=== PATIENT | male | born 1965 | race Caucasian/White ===

== ENCOUNTER 2017-07-06 19:06 | Emergency (ER) | payer OTHER ==
[2017-07-06 20:10] LABS: ABSOLUTE BASOPHIL COUNT 0 /CUMM (0.0-0.2); ABSOLUTE EOSINOPHIL COUNT 0 /CUMM (0.0-0.7); ABSOLUTE GRANULOCYTE CT 11.9 /CUMM (1.4-6.5); ABSOLUTE LYMPH COUNT 0.7 /CUMM (1.2-3.4); ABSOLUTE MONOCYTE COUNT 0.8 /CUMM (0.10-0.60); BASOPHIL % 0.1 % (0.0-2.0); EOSINOPHIL % 0.2 % (0-5); GRANULOCYTE % 88.9 % (42.2-75.2); HEMATOCRIT 39.4 % (42-52); MEAN CORPUSCULAR HGB 28.6 PG (27.0-31.0); MEAN CORPUSCULAR HGB CONC 33.7 G/DL (33.0-37.0); MEAN CORPUSCULAR VOLUME 84.9 FL (80.0-94.0); MEAN PLATELET VOLUME 8.3 FL (7.4-10.4); PLATELET COUNT 208 /CUMM (130-400); RBC DISTRIBUTION WIDTH 13.6 % (11.5-14.5); RED BLOOD CELL CT 4.65 /CUMM (4.70-6.10); WHITE BLOOD CELL COUNT 13.4 /CUMM (4.8-10.8)
--- NOTE | 2017-07-06 20:37 | ED GI/GU/ABDOMINAL COMPLAINT ---
History of Present Illness General Chief Complaint: Abdominal Pain/Flank Pain Stated Complaint: SENT BY URGENT CARE FOR ABDOMINAL PAIN Source: patient Exam Limitations: no limitations Vital Signs & Intake/Output Vital Signs & Intake/Output Vital Signs Date Time Temp Pulse Resp B/P B/P Pulse O2 O2 Flow FiO2 Mean Ox Delivery Rate 07/07 2147 98.5 87 114/62 96 Room Air 07/07 2131 99.1 79 20 106/58 97 Room Air 07/06 2038 101.7 07/06 1929 101.7 104 20 119/76 99 Room Air Allergies Coded Allergies: ofloxacin (From OCUFLOX) (LIGHT SENSITIVITY 07/06/17) Reconcile Medications Amoxicillin/Potassium Clav (Augmentin 875-125 Tablet) 875 MG-125 MG TABLET 1 TAB PO BID divertiuclitis Fexofenadine HCl (Krystyna Allergy) 180 MG TABLET 1 TAB PO DAILY ALLERGIES ( Reported) Folic Acid/Multivit-Min/Lutein (Multi-Vitamin Gummies) 200 MCG-137.5 MCG TAB.CHEW 2 TAB PO DAILY SUPPLEMENT (Reported) Triage Note: PER PT ABD PAIN AFTER WAKING THIS AM PAIN TO URETHRA AND LOW ABD PAIN THEN STARTED WITH FEVER 102, THIS AFTERNOON, LAST MOTRIN 1530, TEMP IN TRIAGE 101.7 DENIES N/V/D NO URINE CO NO BACK PAIN Triage Nurses Notes Reviewed? yes Onset: Abrupt Duration: day(s): (1), changing over time, continues in ED Timing: single episode today Quality/Severity: cramping Severity Numbers: 7 Location: left lower quadrant, right lower quadrant Radiation: no radiation Activities at Onset: none Prior Abdominal Problems: none Past Sexual History: Unobtainable at this time Use of Protection: No No Modifying Factors: none Modifying Factors: Worsens With: movement, palpation. Associated Symptoms: abdominal pain, fever/chills HPI: 51-year-old male with no past medical history presents for evaluation of abdominal pain and fever. Patient states symptoms started earlier today with bilateral lower abdominal pain and fever. He states that initially the pain started in the superpubic and left lower quadrant. He also reported some intermittent pain in his urethra. This was very brief and resolved no testicular pain or swelling. No urinary symptoms. No penile discharge or fever. No back pain. No abdominal surgeries. No other associated symptoms. Past History Travel History Traveled to [place] past 21 day No Medical History Any Pertinent Medical History? see below for history Neurological: NONE EENT: NONE Cardiovascular: NONE Respiratory: NONE Gastrointestinal: NONE Hepatic: NONE Renal: NONE Musculoskeletal: NONE Psychiatric: NONE Endocrine: NONE Blood Disorders: NONE Surgical History Surgical History: non-contributory Psychosocial History What is your primary language Kinyarwanda Tobacco Use: Never used Family History Hx Contributory? No Review of Systems Review of Systems Constitutional: Reports: chills, diaphoresis, fever. EENTM: Reports: no symptoms. Respiratory: Reports: no symptoms. Cardiovascular: Reports: no symptoms. GI: Reports: see HPI, abdominal pain. Genitourinary: Reports: no symptoms. Musculoskeletal: Reports: no symptoms. Skin: Reports: no symptoms. Neurological/Psychological: Reports: no symptoms. Hematologic/Endocrine: Reports: no symptoms. Immunologic/Allergic: Reports: no symptoms. All Other Systems: Reviewed and Negative Physical Exam Physical Exam General Appearance: well developed/nourished, no apparent distress, alert, awake Head: atraumatic, normal appearance Eyes: Bilateral: normal appearance, PERRL, EOMI. Ears, Nose, Throat, Mouth: hearing grossly normal, moist mucous membrane Neck: normal inspection, supple, full range of motion Respiratory: normal breath sounds, chest non-tender, no respiratory distress, lungs clear Cardiovascular: regular rate/rhythm, normal peripheral pulses Peripheral Pulses: 2+ radial (R), 2+ radial (L) Gastrointestinal: normal bowel sounds, soft, non-tender, no organomegaly Back: normal inspection, normal range of motion, no vertebral tenderness Extremities: normal range of motion Neurologic/Psych: no motor/sensory deficits, awake, alert, oriented x 3, normal gait Skin: intact, normal color, warm/dry Core Measures ACS in differential dx? No Sepsis Present: No Sepsis Focused Exam Completed? No Progress Differential Diagnosis: AAA, AMI, appendicitis, biliary colic, bowel obstruction , cholecystitis, diverticulitis, gastritis, pancreatitis, prostatitis, peptic ulcer, PUD/GERD, pyelonephritis, SBO, STD, ureterolithiasis, urinary retention, urethritis, UTI/pyelo Plan of Care: Orders Procedure Date/time Status Add-on Test (ER Only) 07/06 2002 Active BLOOD CULTURE 07/06 2002 Active EKG 07/06 2002 Active LACTIC ACID 07/06 1952 Complete URINALYSIS 07/06 1912 Complete TROPONIN LEVEL 07/06 1912 Complete LIPASE 07/06 1912 Complete COMPREHENSIVE METABOLIC PANEL 07/06 1912 Complete CBC WITHOUT DIFFERENTIAL 07/06 1912 Complete Laboratory Tests 07/06/172000: Urine Color YEL, Urine Clarity CLEAR, Urine pH 6.0, Ur Specific [place] 1.025, Urine Protein NEG, Urine Ketones NEG, Urine Nitrite NEG, Urine Bilirubin NEG, Urine Urobilinogen 0.2, Ur Leukocyte Esterase NEG, Ur Microscopic EXAM NOT REQUIRED, Urine Hemoglobin NEG, Urine Glucose NEG 07/06/171952: Anion Gap 14, Estimated GFR > 60, BUN/Creatinine Ratio 17.5, Glucose 106 H, Lactic Acid 1.6, Calcium 9.7, Total Bilirubin 0.9, AST 42, ALT 67, Alkaline Phosphatase 68, Troponin I < 0.01, Total Protein 7.4, Albumin 4.9, Globulin 2.5, Albumin/Globulin Ratio 2.0, Lipase 55, CBC w Diff MAN DIFF ORDERED, RBC 4.65 L, MCV 84.9, MCH 28.6, MCHC 33.7, RDW 13.6, MPV 8.3, Gran % 88.9 H, Lymphocytes % 4.9 L, Monocytes % 5.9, Eosinophils % 0.2, Basophils % 0.1, Absolute Granulocytes 11.9 H, Segmented Neutrophils 75, Band Neutrophils 6 H, Absolute Lymphocytes 0.7 L, Lymphocytes 10 L, Monocytes 9, Absolute Monocytes 0.8 H, Absolute Eosinophils 0, Absolute Basophils 0, Platelet Estimate ADEQUATE, Normochromic RBCs VERIFIED Microbiology 07/06 2129 BLOOD: Blood Culture - RECD 07/06 2006 BLOOD: Blood Culture - RECD Patient seen and evaluated. He is here with lower abdominal pain. The pain is located in the bilateral lower quadrants. He is also febrile to 101. IV fluids IV Tylenol ordered. Labs CT scan ordered. Patient is feeling better after Tylenol. His fever broke. He is no longer tachycardic. Blood work shows a white blood cell count of 13.[address] scan is still pending. CT scan shows diverticulitis. No abscess no perforation. Patient is medicated Unasyn here and will be discharged on Augmentin. Follow-up with GI discussed return precautions patient agrees Diagnostic Imaging: Viewed by Me: Radiology Read. Discussed w/RAD: Radiology Read. CXR Impression: PATIENT: KATIE MORALES PRESENT AGE: 51 PATIENT ACCOUNT NO: [id number] : 66 LOCATION: [facility] ORDERING PHYSICIAN: Chun RAMACHANDRAN SERVICE DATE: 07/06/17 EXAM TYPE: RAD - XRY-PORTABLE CHEST XRAY EXAMINATION: XR PORTABLE CHEST CLINICAL INFORMATION: Cough and fever COMPARISON: None TECHNIQUE: Portable frontal view of the chest was obtained. 9: 55 PM FINDINGS: No significant abnormality is noted involving the heart, lungs, mediastinum, bony thorax or soft tissues. IMPRESSION: Unremarkable examination. DICTATED BY: Zeferino Bowser MD DATE/TIME DICTATED:07/06/172211 ACADEMIC RECORDS SPECIALIST :KETAN DATE/TIME TRANSCRIBED:07/06/172211 CONFIDENTIAL, DO NOT COPY WITHOUT APPROPRIATE AUTHORIZATION. <Electronically signed in Other Vendor System> SIGNED BY: Zeferino Bowser MD 07/06/172223 Initial ED EKG: normal sinus rhythm, LVH, LEFT ATRIAL ABN Departure Departure Disposition: STILL A PATIENT Condition: Stable Clinical Impression Primary Impression: Abdominal pain Qualifiers: Abdominal location: left lower quadrant Qualified Code: R10.32 - Left lower quadrant pain Referrals: Alisa HICKEY,Scotty Oconnor Patient Has No Primary Care Dr (PCP/Family) Additional Instructions: Taking about excess directed for the full course. Tylenol or ibuprofen for pain. Make a follow-up with provided GI doctor as soon as possible. Monitor symptoms closely return with any concerns. Departure Forms: Customer Survey General Discharge Information Prescriptions: Current Visit Scripts Amoxicillin/Potassium Clav (Augmentin 875-125 Tablet) 1 TAB PO BID #28 TAB
[2017-07-06] MEDS ORDERED: ALLEGRA ALLERG180 M1 PO (21:47)
[2017-07-06] MEDS ORDERED: MULTI-VITAMIN1 EAC1 PO (21:47)
--- NOTE | 2017-07-06 22:24 | RADIOLOGY REPORT ---
EXAMINATION: XR PORTABLE CHEST CLINICAL INFORMATION: Cough and fever COMPARISON: None TECHNIQUE: Portable frontal view of the chest was obtained. 9:55 PM FINDINGS: No significant abnormality is noted involving the heart, lungs, mediastinum, bony thorax or soft tissues. IMPRESSION: Unremarkable examination.
--- NOTE | 2017-07-06 23:48 | CT SCAN REPORT ---
EXAMINATION: CT ABDOMEN AND PELVIS WITH CONTRAST CLINICAL INFORMATION: Right lower quadrant pain. Left lower quadrant pain. Fever. COMPARISON: None TECHNIQUE: Multidetector volumetric imaging was performed of the abdomen and pelvis following IV administration of 95 mL of Optiray 320 intravenous contrast. Sagittal and coronal reformatted images were obtained on the technologist's workstation. DLP: 388.33 mGy-cm FINDINGS: LUNG BASES: The visualized lung bases are unremarkable. LIVER, GALLBLADDER, AND BILIARY TREE: The liver is normal in size, shape, and attenuation. No focal hepatic lesion or biliary ductal dilatation is present. The gallbladder is unremarkable with no evidence of radiopaque gallstones, gallbladder wall thickening, or obvious pericholecystic inflammatory changes. PANCREAS: Unremarkable. SPLEEN: Unremarkable. ADRENAL GLANDS: Unremarkable. KIDNEYS AND URETERS: The kidneys are normal in size, shape, and attenuation. No hydronephrosis, hydroureter, or calculi seen. No perinephric stranding. BLADDER: Unremarkable. GASTROINTESTINAL TRACT: There is diverticulosis of the left colon and sigmoid. There is focal mild bowel wall thickening and pericolonic edema of the proximal sigmoid consistent with a mild diverticulitis. There is no perforation or abscess. There is no bowel obstruction. Moderate amount of stool throughout the colon. The appendix is normal. The small bowel loops are normal. ABDOMINAL WALL: No significant hernia is appreciated. LYMPH NODES: Normal. VASCULAR: Unremarkable. PELVIC VISCERA: Unremarkable. OSSEOUS STRUCTURES: Degenerative spondylosis spine with multilevel endplate spurring of the vertebrae. IMPRESSION: Diverticulitis of the sigmoid colon.
[2017-07-06] MEDS ORDERED: AUGMENTIN 875-1 EACH PO (23:58)
[2017-07-07 00:28] VITALS: BP 110/67
== END 2017-07-07 00:34 ==
LOC: ERH 19:06
PROVIDERS: Physician Assistant Medical
DX: R10.32 Left lower quadrant pain (principal); R10.31 Right lower quadrant pain
CPT/HCPCS: 71045; 74177; 81003; 87040; 93005; 93010; 96374; 96375; J0131

== ENCOUNTER 2017-07-24 09:11 | Inpatient (IN) | payer OTHER ==
[~2017-07-24] VITALS: Ht 170 cm; Wt 78.0 kg
[~2017-07-24 09:11] MED LIST: ALLEGRA ALLERG180 M1 PO; AUGMENTIN 875-1 EACH PO; MULTI-VITAMIN1 EAC1 PO
[2017-07-24 11:36] LABS: ABSOLUTE BASOPHIL COUNT 0 /CUMM (0.0-0.2); ABSOLUTE EOSINOPHIL COUNT 0 /CUMM (0.0-0.7); ABSOLUTE GRANULOCYTE CT 11.6 /CUMM (1.4-6.5); ABSOLUTE LYMPH COUNT 1.5 /CUMM (1.2-3.4); ABSOLUTE MONOCYTE COUNT 1.5 /CUMM (0.10-0.60); BASOPHIL % 0.2 % (0.0-2.0); EOSINOPHIL % 0.3 % (0-5); GRANULOCYTE % 79.4 % (42.2-75.2); HEMATOCRIT 38.2 % (42-52); MEAN CORPUSCULAR HGB 28.8 PG (27.0-31.0); MEAN CORPUSCULAR HGB CONC 34.4 G/DL (33.0-37.0); MEAN CORPUSCULAR VOLUME 83.7 FL (80.0-94.0); PLATELET COUNT 439 /CUMM (130-400); RED BLOOD CELL CT 4.56 /CUMM (4.70-6.10); WHITE BLOOD CELL COUNT 14.6 /CUMM (4.8-10.8)
--- NOTE | 2017-07-24 11:50 | ED GI/GU/ABDOMINAL COMPLAINT ---
History of Present Illness General Chief Complaint: General Adult Stated Complaint: "DIVERTICULITIS NOT GETTING ANY BETTER" Source: patient Exam Limitations: no limitations Vital Signs & Intake/Output Vital Signs & Intake/Output Vital Signs Date Time Temp Pulse Resp B/P B/P Pulse O2 O2 Flow FiO2 Mean Ox Delivery Rate 07/25 0629 98.1 79 18 108/68 98 / 2101 98.9 92 18 112/76 96 Room Air / 1700 97.9 80 18 100/70 96 Room Air 07/24 1639 98.8 74 18 124/76 98 Room Air Room Air 07/24 1229 98.6 88 18 120/76 100 Room Air / 1124 97 / 0924 98.4 78 20 114/78 99 Room Air ED Intake and Output 07/25 0000 07/24 1200 Intake Total 200 Output Total 100 Balance 100 Intake, IV 200 Intake, Oral 0 Number 3 Bowel Movements Output, Urine 100 Patient 172 lb 172 lb Weight Weight Reported by Patient Measurement Method Allergies Coded Allergies: ofloxacin (From OCUFLOX) (LIGHT SENSITIVITY 07/06/17) Reconcile Medications Amoxicillin/Potassium Clav (Augmentin 875-125 Tablet) 875 MG-125 MG TABLET 1 TAB PO BID divertiuclitis Triage Note: DXD WITH DIVERTICULITIS 18 DAYS AGO, (SEEN HERE) ABDOMINAL PAIN WORSE THE PAST 2 WEEKS WITH INTERMITTANT FEVER, WEAKNESS AND 18 LB WEIGHT LOSS. WAS PRESCRIBED A SECOND COURSE OF AMOXICILLIN BY DR. HAUSER. Triage Nurses Notes Reviewed? yes Onset: Abrupt Duration: week(s): Timing: recent history Quality/Severity: moderate, sharpness Location: left lower quadrant Radiation: no radiation Activities at Onset: none HPI: 51-year-old male comes into the emergency room for further evaluation of left lower abdominal pain has been going on for the past few weeks. Patient was seen here and diagnosed with diverticulitis with a CAT scan. He was on Augmentin. He reports that he was getting better and now his symptoms got worse over the past week. He's had associated fevers of 102. Increased pain in his lower abdomen. Comes in for further evaluation. Denies any prior abdominal surgeries. ([place] RAMACHANDRAN,[place]) Past History Travel History Traveled to [place] past 21 day No Medical History Any Pertinent Medical History? see below for history Neurological: NONE EENT: NONE Cardiovascular: NONE Respiratory: NONE Gastrointestinal: NONE Hepatic: NONE Renal: NONE Musculoskeletal: NONE Psychiatric: NONE Endocrine: NONE Blood Disorders: NONE Surgical History Surgical History: non-contributory Psychosocial History What is your primary language Greenlandic Tobacco Use: Never used ETOH Use: occasional use Family History Hx Contributory? No (Dawood Soliz) Review of Systems Review of Systems Constitutional: Reports: no symptoms. EENTM: Reports: no symptoms. Respiratory: Reports: no symptoms. Cardiovascular: Reports: no symptoms. GI: Reports: see HPI. Genitourinary: Reports: no symptoms. Musculoskeletal: Reports: no symptoms. Skin: Reports: no symptoms. Neurological/Psychological: Reports: no symptoms. Hematologic/Endocrine: Reports: no symptoms. Immunologic/Allergic: Reports: no symptoms. All Other Systems: Reviewed and Negative (Dawood Soliz) Physical Exam Physical Exam General Appearance: well developed/nourished, alert, awake Head: atraumatic Eyes: Bilateral: normal appearance. Ears, Nose, Throat, Mouth: hearing grossly normal, moist mucous membrane Neck: normal inspection Respiratory: normal breath sounds, no respiratory distress Cardiovascular: regular rate/rhythm Gastrointestinal: soft, tenderness (LLQ) Back: normal inspection Extremities: normal range of motion Neurologic/Psych: awake, alert, oriented x 3 Core Measures ACS in differential dx? No Sepsis Present: No Sepsis Focused Exam Completed? No (Dawood Soliz) Progress Differential Diagnosis: appendicitis, diverticulitis, ischemic bowel, perforated viscous, diverticular abscess Plan of Care: Orders Procedure Date/time Status Lab Add-on Test 07/25 0751 Active Change service to 07/25 0739 Active CBC WITHOUT DIFFERENTIAL 07/25 06 Active BASIC ELECTROLYTES PLUS BUN&CR 07/25 0600 Complete Nothing by Mouth 07/24 D Active CULTURE,URINE 07/24 1859 Active URINALYSIS 07/24 1859 Complete Weight 07/24 1743 Complete Vital Signs 07/24 1743 Active Teach/Educate 07/24 174 Active Pain Treatment and Response 07/24 1743 Active Nutritional Intake, Monitor 07/24 1743 Active Isolation 07/24 1743 Active Intake & Output 07/24 1743 Active Patient Care Conference 07/24 1743 Active Activity/Ambulation 07/24 1743 Active Intake & Output 07/24 1639 Active Pathway - chart 07/24 144 Active House Staff 07/24 1445 Active Patient Data 07/24 1445 Active Code Status 07/24 1445 Active ED Holding Orders 07/24 1423 Active Admit to inpatient 07/24 1423 Active Code Status 07/24 1423 Complete Patient Data 07/24 1419 Active BLOOD CULTURE 07/24 1345 Active LACTIC ACID 07/24 1207 Complete LIPASE 07/24 1106 Complete COMPREHENSIVE METABOLIC PANEL 07/24 1106 Complete CBC WITHOUT DIFFERENTIAL 07/24 1106 Complete AMYLASE 07/24 1106 Complete CULTURE,URINE 07/24 0136 Active VTE Mechanical Prophylaxis 07/24 UNK Active Current Medications Sig/Dilip Start time Last Medication Dose Stop Time Status Admin Ceftriaxone Sodium 1,000 MG Q24H 07/25 1500 AC (Rocephin) Metronidazole 500 MG Q8 07/24 2200 AC 07/25 (Flagyl) 0554 N/A 1 UNIT (No Carrier) Sodium Chloride 1,000 ML Q10H 07/24 2045 AC 07/25 (Normal Saline 0.9%) 0554 Acetaminophen 1,000 MG Q8P PRN 07/24 1845 AC (Ofirmev) N/A 1 UNIT (No Carrier) Hydromorphone HCl 2 MG Q6P PRN 07/24 1845 AC (Dilaudid) Enoxaparin Sodium 40 MG DAILY 07/24 1445 AC (Lovenox) Laboratory Tests 07/25/17 0650: Anion Gap 14, Estimated GFR > 60, BUN/Creatinine Ratio 16.3, CBC w Diff Pending, WBC Pending, RBC Pending, Hgb Pending, Hct Pending, MCV Pending, MCH Pending, MCHC Pending, RDW Pending, Plt Count Pending, MPV Pending 07/25/17 0136: Urine Color YEL, Urine Clarity CLEAR, Urine pH 6.5, Ur Specific [place] 1.020, Urine Protein NEG, Urine Ketones NEG, Urine Nitrite NEG, Urine Bilirubin NEG, Urine Urobilinogen 1.0, Ur Leukocyte Esterase NEG, Ur Microscopic SEDIMENT EXAMINED, Urine RBC 1-3, Urine WBC 1-3 H, Urine Hemoglobin TRACE-INTACT H, Urine Glucose NEG 07/24/17 1507: Lactic Acid Cancelled 07/24/17 1208: Lactic Acid 1.5 07/24/17 1130: Anion Gap 14, Estimated GFR > 60, BUN/Creatinine Ratio 12.5, Glucose 91, Calcium 10.3 H, Total Bilirubin 0.8, AST 22, ALT 30, Alkaline Phosphatase 93, Total Protein 7.6, Albumin 4.3, Globulin 3.3, Albumin/Globulin Ratio 1.3, Amylase 46, Lipase 39, CBC w Diff NO MAN DIFF REQ, RBC 4.56 L, MCV 83.7, MCH 28.8, MCHC 34.4, RDW 13.0, MPV 8.0, Gran % 79.4 H, Lymphocytes % 10.0 L, Monocytes % 10.1 H, Eosinophils % 0.3, Basophils % 0.2, Absolute Granulocytes 11.6 H, Absolute Lymphocytes 1.5, Absolute Monocytes 1.5 H, Absolute Eosinophils 0, Absolute Basophils 0 Microbiology 07/25 0136 URINE ROUT: Urine Culture - COLB 07/24 1452 BLOOD: Blood Culture - RECD 07/24 1439 BLOOD: Blood Culture - RECD Diagnostic Imaging: Viewed by Me: CT Scan. Discussed w/RAD: CT Scan. Radiology Impression: PATIENT: KATIE MORALES PRESENT AGE: 51 PATIENT ACCOUNT NO: [id number] : 67 LOCATION: [facility] ORDERING PHYSICIAN: Dawood RAMACHANDRAN SERVICE DATE: 07/24/17 EXAM TYPE: CAT - CT ABD & PELVIS W IV CONTRAST EXAMINATION: CT ABDOMEN AND PELVIS WITH CONTRAST CLINICAL INFORMATION: Elevated white blood cells. Recent diverticulitis. Left lower quadrant pain. COMPARISON: CT scan of the abdomen and pelvis 07/06/2017. TECHNIQUE: Multidetector volumetric imaging was performed of the abdomen and pelvis following IV administration of 95 mL of Optiray 320 intravenous contrast. Sagittal and coronal reformatted images were obtained on the technologist's workstation. DLP: 324.14 mGy-cm FINDINGS: LUNG BASES: The visualized lung bases are unremarkable. LIVER, GALLBLADDER, AND BILIARY TREE: The liver is normal in size, shape, and attenuation. No focal hepatic lesion or biliary ductal dilatation is present. The gallbladder is unremarkable with no evidence of radiopaque gallstones, gallbladder wall thickening, or obvious pericholecystic inflammatory changes. PANCREAS: Unremarkable. SPLEEN: The spleen is top normal in size. There is a splenule at the splenic hilum. ADRENAL GLANDS: The adrenal glands are not enlarged. KIDNEYS AND URETERS: The kidneys are normal in size, shape, and attenuation. No hydronephrosis, hydroureter, or calculi seen. No perinephric stranding. BLADDER: The bladder is almost completely decompressed. GASTROINTESTINAL TRACT: The stomach and small bowel are unremarkable. The appendix is normal. There has been interval worsening of the diverticulitis in the distal descending and in the sigmoid colon. The bowel wall is thickened and there is increased density in the pericolonic fat. There are small foci of air, which may in diverticula. There are no definite microperforations or fluid collections/abscess. There is no evidence of bowel obstruction. There is no free intra-abdominal air. ABDOMINAL WALL: The study redemonstrates a small fat- containing left inguinal hernia. LYMPH NODES: There is no abdominal or pelvic lymphadenopathy. VASCULAR: The vascular structures are unremarkable. No aneurysms are demonstrated. PELVIC VISCERA: The prostate gland is nonenlarged. There is no free fluid in the pelvis. OSSEOUS STRUCTURES: There are mild multilevel spondylitic changes. IMPRESSION: 1. The current study demonstrates marked worsening of the sigmoid colon diverticulitis compared to the prior study. There are no definite microperforations and no masses are demonstrated. DICTATED BY: Ronal Posey MD DATE/TIME DICTATED:07/24/171306 TEACHER OF THE DEAF/HARD OF HEARING :KETAN DATE/TIME TRANSCRIBED:07/24/171306 CONFIDENTIAL, DO NOT COPY WITHOUT APPROPRIATE AUTHORIZATION. <Electronically signed in Other Vendor System> SIGNED BY: Ronal Posey MD 07/24/17 1324 Initial ED EKG: none (Dawood Soliz) Departure Departure Disposition: STILL A PATIENT Condition: Stable Clinical Impression Primary Impression: Acute diverticulitis Referrals: Patient Has No Primary Care Dr (PCP/Family) Departure Forms: Customer Survey General Discharge Information Admission Note Spoke With: Frantz Melton MD Documentation of Exam: Documentation of any treatments & extenuating circumstances including Concerns Regarding Discharge (functional status, medication knowledge or non-compliance, living conditions, etc.) that warrant an admission rather than observation: Patient has failed outpatient with oral antibiotics. Patient will require IV antibiotics. Bowel rest. IV fluids. Medically not safe for discharge. Worsening diverticulitis. (Dawood Soliz) PA/SENIOR HADOOP DEVELOPER Co-Sign Statement Statement: ED Attending supervision documentation- [] I saw and evaluated the patient. I have also reviewed all the pertinent lab results and diagnostic results. I agree with the findings and the plan of care as documented in the PA's/SENIOR HADOOP DEVELOPER's documentation. [X] I have reviewed the ED Record and agree with the PA's/SENIOR HADOOP DEVELOPER's documentation. [] Additions or exceptions (if any) to the PAs/SENIOR HADOOP DEVELOPER's note and plan are summarized below: [] (Bebo Escobar DO)
--- NOTE | 2017-07-24 13:24 | CT SCAN REPORT ---
EXAMINATION: CT ABDOMEN AND PELVIS WITH CONTRAST CLINICAL INFORMATION: Elevated white blood cells. Recent diverticulitis. Left lower quadrant pain. COMPARISON: CT scan of the abdomen and pelvis 07/06/2017. TECHNIQUE: Multidetector volumetric imaging was performed of the abdomen and pelvis following IV administration of 95 mL of Optiray 320 intravenous contrast. Sagittal and coronal reformatted images were obtained on the technologist's workstation. DLP: 324.14 mGy-cm FINDINGS: LUNG BASES: The visualized lung bases are unremarkable. LIVER, GALLBLADDER, AND BILIARY TREE: The liver is normal in size, shape, and attenuation. No focal hepatic lesion or biliary ductal dilatation is present. The gallbladder is unremarkable with no evidence of radiopaque gallstones, gallbladder wall thickening, or obvious pericholecystic inflammatory changes. PANCREAS: Unremarkable. SPLEEN: The spleen is top normal in size. There is a splenule at the splenic hilum. ADRENAL GLANDS: The adrenal glands are not enlarged. KIDNEYS AND URETERS: The kidneys are normal in size, shape, and attenuation. No hydronephrosis, hydroureter, or calculi seen. No perinephric stranding. BLADDER: The bladder is almost completely decompressed. GASTROINTESTINAL TRACT: The stomach and small bowel are unremarkable. The appendix is normal. There has been interval worsening of the diverticulitis in the distal descending and in the sigmoid colon. The bowel wall is thickened and there is increased density in the pericolonic fat. There are small foci of air, which may in diverticula. There are no definite microperforations or fluid collections/abscess. There is no evidence of bowel obstruction. There is no free intra-abdominal air. ABDOMINAL WALL: The study redemonstrates a small fat-containing left inguinal hernia. LYMPH NODES: There is no abdominal or pelvic lymphadenopathy. VASCULAR: The vascular structures are unremarkable. No aneurysms are demonstrated. PELVIC VISCERA: The prostate gland is nonenlarged. There is no free fluid in the pelvis. OSSEOUS STRUCTURES: There are mild multilevel spondylitic changes. IMPRESSION: 1. The current study demonstrates marked worsening of the sigmoid colon diverticulitis compared to the prior study. There are no definite microperforations and no masses are demonstrated.
--- NOTE | 2017-07-24 14:36 | History & Physical ---
Harlan HICKEY,[facility] 07/24/17 1435: General Information and HPI MD Statement: I have seen and personally examined KATIE MONTOYA and documented this H&P. The patient is a 51 year old M who presented with a patient stated chief complaint of [Abdominal Pain]. Source of Information: patient Exam Limitations: no limitations History of Present Illness: Mr. Montoya is a 51-year-old gentleman for no significant past medical history presents to the [place] ER with abdominal pain that has been going on for the past 2 weeks. Patient was seen in the ER 2 weeks ago with similar complaints, was found to have diverticulitis and was discharged home on Augmentin to complete a 14 day course of antibiotics. But according to the patient his abdominal pain got better initially but started having the pain again last Sunday and has persisted since despite the use of antibiotics. Also reports fever(MAXIMUM TEMPERATURE 102.0) and chills, loose stools, weight loss of almost 20 pounds because of the decreased by mouth intake and mostly being on liquid diet. Denies any blood in the stools. He was also given a GI referral but has not been able to make an appointment yet. He called ER again 2-3 days ago, after finishing the augmentin and was prescribed another course of amoxicillin. He took 1 dose of amoxicillin last night and one this morning but because of continued abdominal pain and fevers despite using Tylenol he decided to come to the ER again. Also reports an episode of vomiting in the ER. Denies any previous episodes of diverticulitis, family history of cancer and has not had colonoscopy in the past. Allergies/Medications Allergies: Coded Allergies: ofloxacin (From OCUFLOX) (LIGHT SENSITIVITY 07/06/17) Home Med list Amoxicillin/Potassium Clav (Augmentin 875-125 Tablet) 875 MG-125 MG TABLET 1 TAB PO BID divertiuclitis Past History Travel History Traveled to [place] past 21 day No Medical History Neurological: NONE EENT: NONE Cardiovascular: NONE Respiratory: NONE Gastrointestinal: NONE Hepatic: NONE Renal: NONE Musculoskeletal: NONE Psychiatric: NONE Endocrine: NONE Blood Disorders: NONE Surgical History Surgical History: non-contributory Past Family/Social History Family History Relations & Conditions if any FATHER FH: diabetes mellitus FH: hypertension MOTHER FH: hypertension Psychosocial History Smoking Status: Never Smoked ETOH Use: occasional use Illicit Drug Use: denies illicit drug use Functional Ability ADLs Independent: dressing, eating, toileting, bathing. Ambulation: independent IADLs Independent: shopping, housework, finances, food prep, telephone, transportation , medication admin. Review of Systems Review of Systems Constitutional: Reports: no symptoms, see HPI. EENTM: Reports: no symptoms. Cardiovascular: Reports: no symptoms. Respiratory: Reports: no symptoms. GI: Reports: abdominal pain, diarrhea, vomiting. Genitourinary: Reports: no symptoms. Musculoskeletal: Reports: no symptoms. Skin: Reports: no symptoms. Neurological/Psychological: Reports: no symptoms. Hematologic/Endocrine: Reports: no symptoms. Immunologic/Allergic: Reports: no symptoms. All Other Systems: Reviewed and Negative Exam & Diagnostic Data Last 24 Hrs of Vital Signs/I&O Vital Signs Date Time Temp Pulse Resp B/P B/P Pulse O2 O2 Flow FiO2 Mean Ox Delivery Rate 07/24 1639 98.8 74 18 124/76 98 Room Air Room Air 07/24 1229 98.6 88 18 120/76 100 Room Air 07/24 1124 97 07/24 0924 98.4 78 20 114/78 99 Room Air Intake & Output 07/24 1600 07/24 0800 06 0000 Intake Total Output Total Balance Patient 172 lb Weight Physical Exam General Appearance Alert, Oriented X3, Cooperative Skin No Rashes, No Breakdown HEENT Atraumatic, PERRLA, EOMI, Mucous Membr. moist/pink Cardiovascular Regular Rate, Normal S1, Normal S2 Lungs Clear to Auscultation, Normal Air Movement Abdomen Normal Bowel Sounds, Soft, Tenderness in left lower quadrant Extremities No Clubbing, No Cyanosis, No Edema, Normal Pulses Last 24 Hrs of Labs/Joseph: Laboratory Tests 07/24/17 1507: Lactic Acid Cancelled 07/24/17 1208: Lactic Acid 1.5 07/24/17 1130: Anion Gap 14, Estimated GFR > 60, BUN/Creatinine Ratio 12.5, Glucose 91, Calcium 10.3 H, Total Bilirubin 0.8, AST 22, ALT 30, Alkaline Phosphatase 93, Total Protein 7.6, Albumin 4.3, Globulin 3.3, Albumin/Globulin Ratio 1.3, Amylase 46, Lipase 39, CBC w Diff NO MAN DIFF REQ, RBC 4.56 L, MCV 83.7, MCH 28.8, MCHC 34.4, RDW 13.0, MPV 8.0, Gran % 79.4 H, Lymphocytes % 10.0 L, Monocytes % 10.1 H, Eosinophils % 0.3, Basophils % 0.2, Absolute Granulocytes 11.6 H, Absolute Lymphocytes 1.5, Absolute Monocytes 1.5 H, Absolute Eosinophils 0, Absolute Basophils 0 Microbiology 07/24 1452 BLOOD: Blood Culture - RECD 07/24 1439 BLOOD: Blood Culture - RECD Diagnostic Data EKG Results NSR Other Results CT ABd/Pelvis; IMPRESSION: 1. The current study demonstrates marked worsening of the sigmoid colon diverticulitis compared to the prior study. There are no definite microperforations and no masses are demonstrated. Assessment/Plan Assessment: Mr. Montoya is a 51-year-old gentleman for no significant past medical history presents to the [place] ER with abdominal pain that has been going on for the past 2 weeks. Problem List; #Left lower quadrant pain secondary to worsening acute diverticulitis, with failed outpatient treatment. - Admit the patient to general medicine floor. - Patient was given ceftriaxone 1 and Flagyl x 1 in the ER. We'll continue the same antibiotics. - We'll keep the patient nothing by mouth for now, start on clear liquids from tomorrow. - Repeat CBC in a.m. - Pain management - Tylenol as needed for fever - GI consult if abdominal pain worsens. - Follow-up blood cultures. DVT prophylaxis; Alps and subcutaneous Lovenox Patient is full code As Ranked By This Provider Problem List: 1. Acute diverticulitis 2. Abdominal pain Core Measures/Misc (11/05) Acute Coronary Syndrome ACS Diagnosis: No Congestive Heart Failure Congestive Heart Failure Diagnosis No Cerebrovascular Accident CVA/TIA Diagnosis: No VTE (View Protocol) VTE Risk Factors Age>40 No Mechanical VTE Prophylaxis d/t N/A MechProphylax Ordered No VTE Pharm Prophylaxis d/t NA PharmProphylax ordered Sepsis (View protocol) Sepsis Present: No If YES complete Sepsis Event Note If YES complete Sepsis Event Note Carmen Menard MD 07/24/17 1435: Core Measures/Misc (11/05) Sepsis (View protocol) If YES complete Sepsis Event Note If YES complete Sepsis Event Note Resident Review Statement Resident Statement: examined this patient, discussed with direct marketing intern, agreed with direct marketing intern, discussed with family Other Findings: Patient is 51-year-old male, presented with chief complaints of failure of outpatient treatment of diverticulitis. He was diagnosed as a diverticulitis around 2 weeks ago, and was prescribed Augmentin without any benefit currently he is having worsening abdominal pain, intermittent fever and range of 102, weight loss of 18 LB. He was using Tylenol for the pain but in spite of that he was having high-grade fever. ED course- Vital signs at the time of admission-temperature 98.4, pulse 78, respiratory 20, blood pressure 114/78, SPO2 99% on room air. Blood workup showed -WBC 14.3, hemoglobin 13.1, hematocrit 38.2, platelet count 439, granulocyte 79.4, lymphocytes 10.0, monocytes 10.1, serum sodium 140, potassium 4.8, chloride 100, carbon dioxide 26, anion gap 14, BUN 10, creatinine 0.8, glucose is 91, lactic acid 1.5, calcium 10.3, total bilirubin 0.8, AST 32, ALT 30, alkaline phosphatase 93, amylase 46, lipase 39. CT scan of abdomen and pelvis showed -marked worsening of the sigmoid colon diverticulitis compared to the prior study. There are no definite microperforations and no masses are demonstrated. He was given 1 g ceftriaxone and 500 mg of IV metronidazole. Assessment and plan - Acute sigmoid diverticulitis, uncomplicated, failed outpatient treatment - * We will admit the patient to general medicine floor * NPO * We will start patient on IV fluids NS - 100cc/hr * We will start patient on IV antibiotic including ceftriaxone 1 g IV OD and injection metronidazole IV 500 mg 8 hourly. * Injection Zofran 4 mg as needed for the nausea * Dilaudid/Tylenol as needed for the pain * If patient did not improve then we will obtain GI consult Diet -regular diet CODE STATUS-full code DVT prophylaxis -ALPS/heparin Sigifredo HICKEY,Cecilia 07/24/17 1621: Core Measures/Misc (11/05) Sepsis (View protocol) If YES complete Sepsis Event Note If YES complete Sepsis Event Note Attending MD Review Statement Attending Statement Attending MD Statement: examined this patient, discuss w/resident/PA/PHOTOENGRAVING SKETCH MAKER, agreed w/resident/PA/PHOTOENGRAVING SKETCH MAKER, reviewed EMR data (avail), discussed with nursing, discussed with case mgmt, reviewed images, amended to note Attending Assessment/Plan: 51-year-old male with no significant past history who was seen in the emergency room on July 06 with abdominal pain and found to have diverticulitis. Patient was discharged home on oral Augmentin. He claims that he felt better initially for couple of days but then things started to get worse. He continued to spike fever and abdominal pain was not going away. He called to the emergency room 4 days ago as then divided course was finished. He was prescribed more Augmentin. He continued to spike fever and last night he had a fever 102F. He complains of pain in the left lower quadrant. He denies any nausea or vomiting. He does complain of losing almost 18 pounds of weight because he was not eating well. He was mostly taking liquid diet. He denies any diarrhea or constipation. He denies any bright red blood per rectum or any melanotic stools. He did have some chills. Vital Signs Date Time Temp Pulse Resp B/P B/P Pulse O2 O2 Flow FiO2 Mean Ox Delivery Rate 07/24 1229 98.6 88 18 120/76 100 Room Air 07/24 1124 97 07/24 0924 98.4 78 20 114/78 99 Room Air On exam; aox3,nad. Cv; s1, s2, rrr resp; clear abd; soft, tender in llq as well as hypogastrium, bs+ ext: no edema. Laboratory Tests 07/24 07/24 07/24 1507 1208 1130 Chemistry Sodium (137 - 145 mmol/L) 140 Potassium (3.5 - 5.1 mmol/L) 4.8 Chloride (98 - 107 mmol/L) 100 Carbon Dioxide (22 - 30 mmol/L) 26 Anion Gap (5 - 16) 14 BUN (9 - 20 mg/dL) 10 Creatinine (0.7 - 1.2 mg/dL) 0.8 Estimated GFR (>60 ml/min) > 60 BUN/Creatinine Ratio (7 - 25 %) 12.5 Glucose (65 - 99 mg/dL) 91 Lactic Acid (0.7 - 2.1 mmol/L) Cancelled 1.5 Calcium (8.4 - 10.2 mg/dL) 10.3 H Total Bilirubin (0.2 - 1.3 mg/dL) 0.8 AST (17 - 59 U/L) 22 ALT (21 - 72 U/L) 30 Alkaline Phosphatase (< 127 U/L) 93 Total Protein (6.3 - 8.2 g/dL) 7.6 Albumin (3.5 - 5.0 g/dL) 4.3 Globulin (1.9 - 4.2 gm/dL) 3.3 Albumin/Globulin Ratio (1.1 - 2.2 %) 1.3 Amylase (30 - 110 U/L) 46 Lipase (23 - 300 U/L) 39 Hematology CBC w Diff NO MAN DIFF REQ WBC (4.8 - 10.8 /CUMM) 14.6 H RBC (4.70 - 6.10 /CUMM) 4.56 L Hgb (14.0 - 18.0 G/DL) 13.1 L Hct (42 - 52 %) 38.2 L MCV (80.0 - 94.0 FL) 83.7 MCH (27.0 - 31.0 PG) 28.8 MCHC (33.0 - 37.0 G/DL) 34.4 RDW (11.5 - 14.5 %) 13.0 Plt Count (130 - 400 /CUMM) 439 H MPV (7.4 - 10.4 FL) 8.0 Gran % (42.2 - 75.2 %) 79.4 H Lymphocytes % (20.5 - 51.1 %) 10.0 L Monocytes % (1.7 - 9.3 %) 10.1 H Eosinophils % (0 - 5 %) 0.3 Basophils % (0.0 - 2.0 %) 0.2 Absolute Granulocytes (1.4 - 6.5 /CUMM) 11.6 H Absolute Lymphocytes (1.2 - 3.4 /CUMM) 1.5 Absolute Monocytes (0.10 - 0.60 /CUMM) 1.5 H Absolute Eosinophils (0.0 - 0.7 /CUMM) 0 Absolute Basophils (0.0 - 0.2 /CUMM) 0 CT bd/pelvis: The current study demonstrates marked worsening of the sigmoid colon diverticulitis compared to the prior study. There are no definite microperforations and no masses are demonstrated. A/P; 51-year-old male with no significant past history who is admitted with fevers, left lower quadrant abdominal pain and acute diverticulitis failing outpatient treatment. CT findings consistent with worsening of the sigmoid diverticulitis. Patient has worsening leukocytosis. Lactate normal. Patient will be admitted to medicine. He was given ceftriaxone and Flagyl in the emergency room which we can continue. We'll follow-up on the blood cultures. Check urinalysis and urine culture all the patient denies any complaints. He has no complaints of cough or any trouble breathing. Patient should be kept nothing by mouth and should be hydrated with IV fluids. If symptoms improve then he can be started on liquid diet tomorrow. Patient will require analgesics for pain management. CT does not show any evidence of abscess. Will do serial abdominal exams. Would also consider GI consult. pharmacologic DVT prophylaxis. Patient is a full code.
[2017-07-24 17:00] VITALS: BP 100/70
[2017-07-24 21:01] VITALS: BP 112/76
[2017-07-25 06:29] VITALS: BP 108/68
--- NOTE | 2017-07-25 07:12 | PN- Housestaff ---
Subjective Follow-up For: Abdominal pain Subjective: Patient seen and examined at bedside. Slept well overnight. States his abdominal pain is significantly improved Review of Systems Constitutional: Reports: no symptoms. Objective Last 24 Hrs of Vital Signs/I&O Vital Signs Date Time Temp Pulse Resp B/P B/P Pulse O2 O2 Flow FiO2 Mean Ox Delivery Rate 07/25 0529 98.1 79 18 108/68 98 / 2101 98.9 92 18 112/76 96 Room Air 07/24 1700 97.9 80 18 100/70 96 Room Air 07/24 1639 98.8 74 18 124/76 98 Room Air Room Air 07/24 1229 98.6 88 18 120/76 100 Room Air Intake & Output 07/25 1600 07/25 0800 07/25 0000 Intake Total 950 720 200 Output Total 200 300 100 Balance 750 420 100 Intake, IV 400 720 200 Intake, Oral 550 0 0 Number 2 3 Bowel Movements Output, Urine 200 300 100 Patient 172 lb Weight Weight Reported by Patient Measurement Method Physical Exam General Appearance: Alert, Oriented X3, Cooperative, No Acute Distress Skin: No Rashes, No Breakdown Skin Temp/Moisture Exam: Warm/Dry Sepsis Skin Exam (color): Normal for Ethnicity HEENT: Atraumatic Cardiovascular: Normal S1, Normal S2, No Murmurs Lungs: Clear to Auscultation, Normal Air Movement Abdomen: Soft, mild tenderness in LLQ Neurological: Normal Speech Extremities: No Edema Last 24 Hrs of Lab/Joseph Results Last 24 Hrs of Labs/Mics: Laboratory Tests 07/25/17 0650: Anion Gap 14, Estimated GFR > 60, BUN/Creatinine Ratio 16.3, CBC w Diff NO MAN DIFF REQ, RBC 3.91 L, MCV 84.3, MCH 28.4, MCHC 33.7, RDW 13.0, MPV 8.6, Gran % 70.9, Lymphocytes % 15.7 L, Monocytes % 11.0 H, Eosinophils % 1.8, Basophils % 0.6, Absolute Granulocytes 5.1, Absolute Lymphocytes 1.1 L, Absolute Monocytes 0.8 H, Absolute Eosinophils 0.1, Absolute Basophils 0 07/25/17 0136: Urine Color YEL, Urine Clarity CLEAR, Urine pH 6.5, Ur Specific [place] 1.020, Urine Protein NEG, Urine Ketones NEG, Urine Nitrite NEG, Urine Bilirubin NEG, Urine Urobilinogen 1.0, Ur Leukocyte Esterase NEG, Ur Microscopic SEDIMENT EXAMINED, Urine RBC 1-3, Urine WBC 1-3 H, Urine Hemoglobin TRACE-INTACT H, Urine Glucose NEG 07/24/17 1507: Lactic Acid Cancelled 07/24/17 1208: Lactic Acid 1.5 Microbiology 07/25 0136 URINE ROUT: Urine Culture - COLB 07/24 1452 BLOOD: Blood Culture - RECD 07/24 1439 BLOOD: Blood Culture - RECD Assessment/Plan Assessment: Mr. Montoya is a 51-year-old gentleman for no significant past medical history presents to the [place] ER with abdominal pain that has been going on for the past 2 weeks. Assessment: 1. Acute Diverticulitis with failed outpatient treatement Plan: * Continue IV Ceftriaxone 1g daily and IV Flagyl 500mg q8. * His condition has significantly improved. He can likely be switched to an oral regimen tomorrow. * His diet has been advanced to clear liquid which he is tolerating will. Will advance to Full liquid for dinner. If he does well, his fluids can stopped. * Continue IVF with NS @100ml/hr * IV Zofran as needed for nausea * Tylenol and dilaudidd for pain control * Diet: Clear Liquid diet * DVT Prophylaxis: SC Lovenox * Code: Full Code Problem List: 1. Acute diverticulitis Pain Ratin Pain Location: none Pain Goal: Remain pain free Pain Plan: none Tomorrow's Labs & Rationales: CBC
--- NOTE | 2017-07-25 07:26 | PN- Student ---
Subjective Subjective: Today: Patient seen and examined this morning. No acute events overnight. Patient reported feeling much better. Patient had CLD this morning which he tolerated. Complains of having mild abdominal pain, but better than yesterday, and loose stool. Denied headache, sorethroat, chest pain, SOB. HPI: 51 y/o M without significant medical history, came with due to failure of outpatient management of diverticulitis. Patient was seen in the ER and diagnosed with diverticulitis about 2 wekks prior to admission and was prescribed augmentin for 14 days. During that perior patient started eating more fiber and blend food. Symptoms were improving until 3 days prio to admission patient started to experienced fever despite abx, chills, abdominal pain, loose stool and noted weigh loss (18 pounds in the course of weeks). Abdominal pain is cramping in nature that seem to get better with laying down and worse with bowel movements. He called the ER after finishing the augmentin and was prescribed another course of amoxicillin. He took 1 dose of amoxicillin, but because of continued abdominal pain and fevers despite Tylenol and abx. He decided to come to the ER again. 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 Objective Objective: Vital Signs Date Time Temp Pulse Resp B/P B/P Pulse O2 O2 Flow FiO2 Mean Ox Delivery Rate 07/25 0629 98.1 79 18 108/68 98 / 2101 98.9 92 18 112/76 96 Room Air 06/05 1700 97.9 80 18 100/70 96 Room Air /05 1639 98.8 74 18 124/76 98 Room Air Room Air /05 1229 98.6 88 18 120/76 100 Room Air /05 1124 97 / 0924 98.4 78 20 114/78 99 Room Air Intake & Output 07/25 1600 /06 0800 06/ 0000 Intake Total 720 200 Output Total 300 100 Balance 420 100 Intake, IV 720 200 Intake, Oral 0 0 Number 2 3 Bowel Movements Output, Urine 300 100 Patient 172 lb Weight Weight Reported by Patient Measurement Method PE: General: alert and oriented HEENT:NCAT, anicteric sclera, no sore throat, no exudate, moist oral mucosa CVS: regular rate and rythm, normal S1 and S2 Lungs: clear bilaretal, no added sounds Abd: presented bowel sounds, soft, nondistended, mildly tender at the LLQ Neuro: intact CN I-XII, normal speech Extremities: palpable pulses, no edema Current Medications Sig/Dilip Start time Last Medication Dose Route Stop Time Status Admin Acetaminophen 1,000 MG Q8P PRN 07/24 1845 AC N/A 1 UNIT IV Acetaminophen 0 .STK-MED ONE 07/24 1307 DC IV Acetaminophen 1,000 MG ONCE ONE 07/24 1245 DC 07/24 N/A 1 UNIT IV 07/24 1259 1306 Ceftriaxone Sodium 1,000 MG Q24H 07/25 1500 AC IV Ceftriaxone Sodium 0 .STK-MED ONE 07/24 1357 DC .ROUTE Ceftriaxone Sodium 1,000 MG ONCE ONE 07/24 1345 DC 07/24 IV 07/24 1346 1452 Enoxaparin Sodium 40 MG DAILY 07/24 1445 AC SC Hydromorphone HCl 2 MG Q6P PRN 07/24 1845 AC IV Ketorolac 0 .STK-MED ONE 07/24 1308 DC Tromethamine .ROUTE Ketorolac 30 MG ONCE ONE 07/24 1245 DC Tromethamine IV 07/24 1246 Metronidazole 500 MG Q8 07/24 2200 AC 07/25 N/A 1 UNIT IV 0554 Metronidazole 500 MG ONCE ONE 07/24 1345 DC 07/24 N/A 1 UNIT IV 07/24 1444 1401 Ondansetron HCl 0 .STK-MED ONE 07/24 1411 DC .ROUTE Ondansetron HCl 4 MG ONCE ONE 07/24 1400 DC 06/05 IV 06 1401 1405 Sodium Chloride 1,000 ML Q10H 07/24 2045 AC 07/25 IV 0554 Results Results: Laboratory Tests 07/25/17 0650: Anion Gap 14, Estimated GFR > 60, BUN/Creatinine Ratio 16.3, CBC w Diff NO MAN DIFF REQ, RBC 3.91 L, MCV 84.3, MCH 28.4, MCHC 33.7, RDW 13.0, MPV 8.6, Gran % 70.9, Lymphocytes % 15.7 L, Monocytes % 11.0 H, Eosinophils % 1.8, Basophils % 0.6, Absolute Granulocytes 5.1, Absolute Lymphocytes 1.1 L, Absolute Monocytes 0.8 H, Absolute Eosinophils 0.1, Absolute Basophils 0 07/25/17 0136: Urine Color YEL, Urine Clarity CLEAR, Urine pH 6.5, Ur Specific [place] 1.020, Urine Protein NEG, Urine Ketones NEG, Urine Nitrite NEG, Urine Bilirubin NEG, Urine Urobilinogen 1.0, Ur Leukocyte Esterase NEG, Ur Microscopic SEDIMENT EXAMINED, Urine RBC 1-3, Urine WBC 1-3 H, Urine Hemoglobin TRACE-INTACT H, Urine Glucose NEG 07/24/17 1208: Lactic Acid 1.5 07/24/17 1130: Anion Gap 14, Estimated GFR > 60, BUN/Creatinine Ratio 12.5, Glucose 91, Calcium 10.3 H, Total Bilirubin 0.8, AST 22, ALT 30, Alkaline Phosphatase 93, Total Protein 7.6, Albumin 4.3, Globulin 3.3, Albumin/Globulin Ratio 1.3, Amylase 46, Lipase 39, CBC w Diff NO MAN DIFF REQ, RBC 4.56 L, MCV 83.7, MCH 28.8, MCHC 34.4, RDW 13.0, MPV 8.0, Gran % 79.4 H, Lymphocytes % 10.0 L, Monocytes % 10.1 H, Eosinophils % 0.3, Basophils % 0.2, Absolute Granulocytes 11.6 H, Absolute Lymphocytes 1.5, Absolute Monocytes 1.5 H, Absolute Eosinophils 0, Absolute Basophils 0 Microbiology 07/26 135 URINE ROUT: Urine Culture - COLB 07/24 1452 BLOOD: Blood Culture - RECD 07/24 1439 BLOOD: Blood Culture - RECD 07/25 135 URINE ROUT: Urine Culture - RECD Assessment/Plan Assessment: 51 y/o M without significant medical history, came with due to failure of outpatient management of diverticulitis. Patient found to have leukocytosis of 14.6 (g-79%), calcium of 10.3, LFT WNL, Amylase 46, lipase 39. A CTabd was performed which showed worsening of the sigmoid colon diverticulitis compared to the prior study (07/06/17). No microperforations and no masses are demonstrated. Based on H&P, labs and imagine, patient maybe having a progression of the diverticulitis or a new flare. At this point surgery is not needed as there is no perforation or abscess, and no guardng or rebound in the examination. Patient failed outpatient treatment with augmentin. Patient is tolerating CLD, no fever reported and abdominal pain is improved. Leukocytosis is resolved from 15 to 7 today. H&H decreased but patient is getting IV fluids. At this point seem like current treatment is improving the patient clinically and lab kemp. Plan: LLQ pain 2/2 to worsening sigmoid diverticulitis which failed outpatient management: -patient admitted to [facility] -monitor vitals, CBC and chemistry -Patient on CLD if tolerated well FLD can be started -cont. IV fluids (@100) [place] PO intake, if patient do well with diet we can stop the fluids - nausea med prn - pain cotrol (Dilaudid 2mg IV Q6 PRN and Tylenol 1g Q8 PRN) -IV ceftriaxone (1g Q24 and flagyl 500mg Q8) probably 10-14 day -GI consult if needed -Blood cx pending -At the point of discharge patient should follow with PCP and GI with a colonoscopy DVT ppx: SCD and Lovenox (40mg daily SC) Patient is full code
[2017-07-25 08:08] LABS: ABSOLUTE BASOPHIL COUNT 0 /CUMM (0.0-0.2); ABSOLUTE EOSINOPHIL COUNT 0.1 /CUMM (0.0-0.7); ABSOLUTE LYMPH COUNT 1.1 /CUMM (1.2-3.4); MEAN CORPUSCULAR HGB 28.4 PG (27.0-31.0); MEAN PLATELET VOLUME 8.6 FL (7.4-10.4)
[2017-07-25 08:32] LABS: ABSOLUTE GRANULOCYTE CT 5.1 /CUMM (1.4-6.5); ABSOLUTE MONOCYTE COUNT 0.8 /CUMM (0.10-0.60); BASOPHIL % 0.6 % (0.0-2.0); EOSINOPHIL % 1.8 % (0-5); GRANULOCYTE % 70.9 % (42.2-75.2); MEAN CORPUSCULAR HGB CONC 33.7 G/DL (33.0-37.0); MEAN CORPUSCULAR VOLUME 84.3 FL (80.0-94.0); PLATELET COUNT 335 /CUMM (130-400); RED BLOOD CELL CT 3.91 /CUMM (4.70-6.10)
[2017-07-25 08:35] LABS: HEMATOCRIT 32.9 % (42-52); WHITE BLOOD CELL COUNT 7.2 /CUMM (4.8-10.8)
--- NOTE | 2017-07-25 11:34 | PN- Att Addend ---
Attending Addendum Attending Brief Note Patient seen and examined, overall doing better. Left lower quadrant pain has reduced. Patient has appetite and wants to take something by mouth. Vital Signs Date Time Temp Pulse Resp B/P B/P Pulse O2 O2 Flow FiO2 Mean Ox Delivery Rate 07/25 0629 98.1 79 18 108/68 98 07/24 2101 98.9 92 18 112/76 96 Room Air 06 1700 97.9 80 18 100/70 96 Room Air 07/24 1639 98.8 74 18 124/76 98 Room Air Room Air 07/24 1229 98.6 88 18 120/76 100 Room Air on exam; aox3, nad. cv; s1,s2, rrr resp; clear abd; soft, mildly tender in llq, bs+ ext; no edema Laboratory Tests 07/25 07/25 0650 0136 Chemistry Sodium (137 - 145 mmol/L) 142 Potassium (3.5 - 5.1 mmol/L) 3.9 Chloride (98 - 107 mmol/L) 104 Carbon Dioxide (22 - 30 mmol/L) 23 Anion Gap (5 - 16) 14 BUN (9 - 20 mg/dL) 13 Creatinine (0.7 - 1.2 mg/dL) 0.8 Estimated GFR (>60 ml/min) > 60 BUN/Creatinine Ratio (7 - 25 %) 16.3 Hematology CBC w Diff NO MAN DIFF REQ WBC (4.8 - 10.8 /CUMM) 7.2 RBC (4.70 - 6.10 /CUMM) 3.91 L Hgb (14.0 - 18.0 G/DL) 11.1 L Hct (42 - 52 %) 32.9 L MCV (80.0 - 94.0 FL) 84.3 MCH (27.0 - 31.0 PG) 28.4 MCHC (33.0 - 37.0 G/DL) 33.7 RDW (11.5 - 14.5 %) 13.0 Plt Count (130 - 400 /CUMM) 335 MPV (7.4 - 10.4 FL) 8.6 Gran % (42.2 - 75.2 %) 70.9 Lymphocytes % (20.5 - 51.1 %) 15.7 L Monocytes % (1.7 - 9.3 %) 11.0 H Eosinophils % (0 - 5 %) 1.8 Basophils % (0.0 - 2.0 %) 0.6 Absolute Granulocytes (1.4 - 6.5 /CUMM) 5.1 Absolute Lymphocytes (1.2 - 3.4 /CUMM) 1.1 L Absolute Monocytes (0.10 - 0.60 /CUMM) 0.8 H Absolute Eosinophils (0.0 - 0.7 /CUMM) 0.1 Absolute Basophils (0.0 - 0.2 /CUMM) 0 Urines Urine Color (YEL,AMB,STR) YEL Urine Clarity (CLEAR) CLEAR Urine pH (5.0 - 8.0) 6.5 Ur Specific [place] (1.001 - 1.035) 1.020 Urine Protein (NEG,<30 MG/DL) NEG Urine Ketones (NEG) NEG Urine Nitrite (NEG) NEG Urine Bilirubin (NEG) NEG Urine Urobilinogen (0.1 - 1.0 EU/dl) 1.0 Ur Leukocyte Esterase (NEG) NEG Ur Microscopic SEDIMENT EXAMINED Urine RBC (0 - 5 /HPF) 1-3 Urine WBC (0 - 2 /HPF) 1-3 H Urine Hemoglobin (NEG) TRACE-INTACT H Urine Glucose (N MG/DL) NEG 07/24 06 1507 1208 Chemistry Lactic Acid (0.7 - 2.1 mmol/L) Cancelled 1.5 A/P: 51-year-old male with no significant past history who is admitted with fevers, left lower quadrant abdominal pain and acute diverticulitis failing outpatient treatment. CT findings consistent with worsening of the sigmoid diverticulitis. Today patient improving. Leukocytosis has improved. His tenderness and pain has improved. Patient is hungry and wants to take something by mouth. He will be started on clear liquid diet. Continue IV fluids and IV antibiotics. We'll follow-up on the cultures. If patient continues to tolerate diet that will advanced to full liquids later today. DVT px; lovenox.
[2017-07-25 14:14] VITALS: BP 114/72
--- NOTE | 2017-07-25 14:22 | Patient Discharge Instructions ---
Discharge Instructions General Discharge Information You were seen/treated for: Diverticulitis Watch for these problems: abdominal pain, fever, bloody bowel movement Special Instructions: Please follow up with a PCP within one week of discharge. Please return to the ED for any worsening symptoms or concerns. Diet Continue normal diet: Yes Recommended Diet: Low Fiber Activity Full Activity/No Limits: Yes Acute Coronary Syndrome Inclusion Criteria At DC or during hospital stay patient has or had the following: ACS DIAGNOSIS No Discharge Core Measures Meds if any: Prescribed or Continued at Discharge Meds if any: NOT Prescribed or Continued at Discharge Congestive Heart Failure Inclusion Criteria At DC or during hospital stay patient has or had the following: CHF DIAGNOSIS No Discharge Core Measures Meds if any: Prescribed or Continued at Discharge Meds if any: NOT Prescribed or Continued at Discharge Cerebrovascular accident Inclusion Criteria At DC or during hospital stay patient has or had the following: CVA/TIA Diagnosis No Discharge Core Measures Meds if any: Prescribed or Continued at Discharge Meds if any: NOT Prescribed or Continued at Discharge Venous thromboembolism Inclusion Criteria VTE Diagnosis No VTE Type NONE VTE Confirmed by (Test) NONE Discharge Core Measures - Per Current guidelines, there needs to be overlap - treatment for the first 5 days of Warfarin therapy. - If discharged on Warfarin prior to 5 days of - overlap therapy, the patient will need to be - assessed for post discharge needs including - *Post discharge parental anticoagulation - *Warfarin and/or parental anticoagulation education - *Follow up date to check INR post discharge At least 5 days overlap therapy as Inpatient No Meds if any: Prescribed or Continued at Discharge Note: Overlap Therapy is Warfarin and Anticoagulant Meds if any: NOT Prescribed or Continued at Discharge
[2017-07-25] MEDS ORDERED: CIPROFLOXACIN500 M2 PO (15:34)
[2017-07-25] MEDS ORDERED: METRONIDAZOLE500 M1 PO (15:34)
[2017-07-25 21:31] VITALS: BP 100/66
[2017-07-26 06:37] VITALS: BP 100/70
--- NOTE | 2017-07-26 07:13 | PN- Housestaff ---
Angela HICKEY,[facility] 07/26/17 0713: Subjective Follow-up For: Diverticulitis Subjective: Patient seen and examined. States he had a fever of 100.4 last night for which he received tylenol and resolved afterwards. Still has some mild left lower quadrant pain. Review of Systems Constitutional: Reports: chills, fever. Gastrointestinal: Reports: abdominal pain. Objective Last 24 Hrs of Vital Signs/I&O Vital Signs Date Time Temp Pulse Resp B/P B/P Pulse O2 O2 Flow FiO2 Mean Ox Delivery Rate 07/26 0637 98.4 78 20 100/70 95 Room Air 07/26 0225 100.4 07/25 2131 99.1 79 18 100/66 97 Room Air 07/25 1414 98.2 89 18 114/72 98 Intake & Output 07/26 1600 07/26 0800 07/26 0000 Intake Total 900 980 Output Total Balance 900 980 Intake, IV 800 400 Intake, Oral 100 580 Number 6 Bowel Movements Physical Exam General Appearance: Alert, Oriented X3, Cooperative, No Acute Distress Skin: No Rashes, No Breakdown Skin Temp/Moisture Exam: Warm/Dry Sepsis Skin Exam (color): Normal for Ethnicity HEENT: Atraumatic Cardiovascular: Normal S1, Normal S2, No Murmurs Lungs: Clear to Auscultation, Normal Air Movement Abdomen: Soft, No Tenderness Neurological: Normal Speech Extremities: No Edema Last 24 Hrs of Lab/Joseph Results Last 24 Hrs of Labs/Mics: Laboratory Tests 07/26/17 0708: CBC w Diff NO MAN DIFF REQ, RBC 3.94 L, MCV 83.9, MCH 28.4, MCHC 33.8, RDW 13.3 , MPV 8.9, Gran % 74.6, Lymphocytes % 11.4 L, Monocytes % 11.9 H, Eosinophils % 1.7, Basophils % 0.4, Absolute Granulocytes 5.6, Absolute Lymphocytes 0.9 L, Absolute Monocytes 0.9 H, Absolute Eosinophils 0.1, Absolute Basophils 0 Assessment/Plan Assessment: Mr. Montoya is a 51-year-old gentleman for no significant past medical history presents to the [place] ER with abdominal pain that has been going on for the past 2 weeks. Assessment: 1. Acute Diverticulitis with failed outpatient treatement Plan: * Continue IV Ceftriaxone 1g daily and IV Flagyl 500mg q8. * Since he spiked a fever overnight, will watch him for another day before discharge. * Will switch him to PO antibiotics on discharge. * His diet has been advanced to regular and fluids have been discontinued. * IV Zofran as needed for nausea * Tylenol for pain control as needed. * Diet: Regular * DVT Prophylaxis: SC Lovenox * Code: Full Code Problem List: 1. Acute diverticulitis Pain Ratin Pain Location: none Pain Goal: Remain pain free Pain Plan: none Tomorrow's Labs & Rationales: CBC Sigifredo HICKEY,Cecilia 07/26/17 1054: Attending MD Review Statement Attending Statement Attending MD Statement: examined this patient, discuss w/resident/PA/SUPERVIS[employer], agreed w/resident/PA/SUPERVISOR [employer], reviewed EMR data (avail), discussed with nursing, discussed with case mgmt, reviewed images, amended to note Attending Assessment/Plan: Patient seen and examined, had a fever early am. Abd pain overall is better. Patient did have a BM. Vital Signs Date Time Temp Pulse Resp B/P B/P Pulse O2 O2 Flow FiO2 Mean Ox Delivery Rate 07/26 0637 98.4 78 20 100/70 95 Room Air 07/26 0225 100.4 07/25 2131 99.1 79 18 100/66 97 Room Air 07/25 1414 98.2 89 18 114/72 98 on exam; aox3, nad. cv; s1,s2, rrr resp; clear abd; soft, slightly tender in llq, bs+ ext; no edema Laboratory Tests 07/26 07 Hematology CBC w Diff NO MAN DIFF REQ WBC (4.8 - 10.8 /CUMM) 7.4 RBC (4.70 - 6.10 /CUMM) 3.94 L Hgb (14.0 - 18.0 G/DL) 11.2 L Hct (42 - 52 %) 33.1 L MCV (80.0 - 94.0 FL) 83.9 MCH (27.0 - 31.0 PG) 28.4 MCHC (33.0 - 37.0 G/DL) 33.8 RDW (11.5 - 14.5 %) 13.3 Plt Count (130 - 400 /CUMM) 319 MPV (7.4 - 10.4 FL) 8.9 Gran % (42.2 - 75.2 %) 74.6 Lymphocytes % (20.5 - 51.1 %) 11.4 L Monocytes % (1.7 - 9.3 %) 11.9 H Eosinophils % (0 - 5 %) 1.7 Basophils % (0.0 - 2.0 %) 0.4 Absolute Granulocytes (1.4 - 6.5 /CUMM) 5.6 Absolute Lymphocytes (1.2 - 3.4 /CUMM) 0.9 L Absolute Monocytes (0.10 - 0.60 /CUMM) 0.9 H Absolute Eosinophils (0.0 - 0.7 /CUMM) 0.1 Absolute Basophils (0.0 - 0.2 /CUMM) 0 A/P; 51-year-old male with no signal and past history who was admitted with fevers, lower quadrant abdominal pain and acute diverticulitis failing outpatient treatment his CT abdomen and pelvis showed worsening of the sigmoid diverticulitis. Patient had a low-grade temp earlier in the morning. Will monitor. If continues to spike fever, we might be to repeat his imaging. We'll continue the IV antibiotics through today. We'll advance his diet to low fiber diet. We can stop the IV fluids. If patient continues to tolerate diet and remains afebrile in the next 24 hours, likely discharge home on oral antibiotics. Patient will follow-up with GI as an outpatient. DVT px; Lovenox ordered but patient refusing as he is ambulating.
--- NOTE | 2017-07-26 07:57 | PN- Student ---
Subjective Subjective: Last night- patient complaint of headache and asked the nurse a tylenol, nurse took the temp and was 100.4. Today- Patient seen and examined this morning. Patient complaint of mild abdominal pain that seems to be "little bit more painfull that yesterday'' and he thinks is because he is bloated. Patient feels like getting more food and wish to try regular food today. Last bowel movement was last night around 10: 00pm. Tolerating food well. Denied headache at this point, nausea/vomiting, chest pain, SOB, diarrhea. Objective Objective: Vital Signs Date Time Temp Pulse Resp B/P B/P Pulse O2 O2 Flow FiO2 Mean Ox Delivery Rate 07/26 0637 98.4 78 20 100/70 95 Room Air 07/26 0225 100.4 07/25 2131 99.1 79 18 100/66 97 Room Air 07/25 1414 98.2 89 18 114/72 98 Intake & Output 07/26 0800 07/26 0000 07/25 1600 Intake Total 500 1430 Output Total 200 Balance 500 1230 Intake, IV 400 400 Intake, Oral 100 1030 Number 1 5 Bowel Movements Output, Urine 200 PE: General= alert and oriented in no acute distress HEENT= normocephalic atraumatic, aniteric sclera, moist oral mucosa, no exudates CVS= regular rate and rythm, normal S1 and S2 Lungs= symetrical chest expasion, clear breath sounds, no added sound Abdomen= presented bowel sounds, soft, nondistended, mildly tender over the LLQ Neuro= intact CN II-XII, normal speech Extremities= palpable pulses x4, no edema Results Results: Laboratory Tests 07/26 07 Hematology CBC w Diff NO MAN DIFF REQ WBC (4.8 - 10.8 /CUMM) 7.4 RBC (4.70 - 6.10 /CUMM) 3.94 L Hgb (14.0 - 18.0 G/DL) 11.2 L Hct (42 - 52 %) 33.1 L MCV (80.0 - 94.0 FL) 83.9 MCH (27.0 - 31.0 PG) 28.4 MCHC (33.0 - 37.0 G/DL) 33.8 RDW (11.5 - 14.5 %) 13.3 Plt Count (130 - 400 /CUMM) 319 MPV (7.4 - 10.4 FL) 8.9 Gran % (42.2 - 75.2 %) 74.6 Lymphocytes % (20.5 - 51.1 %) 11.4 L Monocytes % (1.7 - 9.3 %) 11.9 H Eosinophils % (0 - 5 %) 1.7 Basophils % (0.0 - 2.0 %) 0.4 Absolute Granulocytes (1.4 - 6.5 /CUMM) 5.6 Absolute Lymphocytes (1.2 - 3.4 /CUMM) 0.9 L Absolute Monocytes (0.10 - 0.60 /CUMM) 0.9 H Absolute Eosinophils (0.0 - 0.7 /CUMM) 0.1 Absolute Basophils (0.0 - 0.2 /CUMM) 0 Current Medications Sig/Dilip Start time Last Medication Dose Route Stop Time Status Admin Acetaminophen 1,000 MG Q8P PRN 07/24 1845 AC 07/26 N/A 1 UNIT IV 0235 Ceftriaxone Sodium 1,000 MG Q24H 07/25 1500 AC 07/25 IV 1609 Enoxaparin Sodium 40 MG DAILY 07/24 1445 AC SC Hydromorphone HCl 2 MG Q6P PRN 07/24 1845 AC IV Metronidazole 500 MG Q8 07/24 2200 AC 07/26 N/A 1 UNIT IV 0533 Ondansetron HCl 4 MG Q6P PRN 07/25 0930 AC 07/25 IV 1617 Patient Medication 1 ED ONE ONE 07/25 1100 DC 07/25 Teaching ED 07/25 1101 1111 Sodium Chloride 1,000 ML Q10H 07/24 2045 WI 07/26 IV 0235 Assessment/Plan Assessment: 51 y/o M without significant medical history, came in due to failure of outpatient management of diverticulitis. Patient found to have leukocytosis of 14.6 (g-79%), calcium of 10.3, LFT WNL, Amylase 46, lipase 39. A CTabd was performed which showed worsening of the sigmoid colon diverticulitis compared to the prior study (07/06/17). No microperforations and no masses are demonstrated. Based on H&P, labs and imagine, patient may be having a progression of the diverticulitis or a new flare. At this point surgery is not needed as there is no perforation or abscess, and no guarding or rebound in the examination. Patient failed outpatient treatment with augmentin. Patient is tolerating FLD, had a 100.4 temp today and abdominal pain is improved. Leukocytosis is resolved and stable at 7. H&H stable. At this point seem like current treatment is improving the patient clinically and lab kemp. If patient continue to have fever we may need to re-scan. Plan: LLQ pain 2/2 to worsening sigmoid diverticulitis which failed outpatient management: -patient admitted to [facility] -monitor vitals, CBC and chemistry -Patient on low fiber regular diet -Patient tolerating food well, we stop the fluids - nausea med prn - pain cotrol (Dilaudid 2mg IV Q6 PRN and Tylenol 1g Q8 PRN) -IV ceftriaxone (1g Q24 and flagyl 500mg Q8) day 3 of probably 10-14 day(change to PO upon DC) -GI consult if needed -Blood cx pending -At the point of discharge patient should follow with PCP and GI with a colonoscopy DVT ppx: SCD and Lovenox (40mg daily SC) Patient is full code
[2017-07-26 08:01] LABS: ABSOLUTE BASOPHIL COUNT 0 /CUMM (0.0-0.2); ABSOLUTE EOSINOPHIL COUNT 0.1 /CUMM (0.0-0.7); ABSOLUTE GRANULOCYTE CT 5.6 /CUMM (1.4-6.5); ABSOLUTE LYMPH COUNT 0.9 /CUMM (1.2-3.4); ABSOLUTE MONOCYTE COUNT 0.9 /CUMM (0.10-0.60); BASOPHIL % 0.4 % (0.0-2.0); EOSINOPHIL % 1.7 % (0-5); GRANULOCYTE % 74.6 % (42.2-75.2); HEMATOCRIT 33.1 % (42-52); MEAN CORPUSCULAR HGB 28.4 PG (27.0-31.0); MEAN CORPUSCULAR HGB CONC 33.8 G/DL (33.0-37.0); MEAN CORPUSCULAR VOLUME 83.9 FL (80.0-94.0); MEAN PLATELET VOLUME 8.9 FL (7.4-10.4); PLATELET COUNT 319 /CUMM (130-400); RBC DISTRIBUTION WIDTH 13.3 % (11.5-14.5); RED BLOOD CELL CT 3.94 /CUMM (4.70-6.10); WHITE BLOOD CELL COUNT 7.4 /CUMM (4.8-10.8)
[2017-07-26] MEDS ORDERED: CIPROFLOXACIN500 M2 PO (11:43)
[2017-07-26] MEDS ORDERED: METRONIDAZOLE500 M1 PO (11:43)
[2017-07-26 14:32] VITALS: BP 109/70
[2017-07-26 22:20] VITALS: BP 118/72
[2017-07-27 06:37] VITALS: BP 110/70
--- NOTE | 2017-07-27 07:17 | PN- Housestaff ---
See Addendum Subjective Follow-up For: Acute Diverticulitis Subjective: Patient seen and examined. States last night was the best sleep he's had here so far. Has some discomfort in his belly but no pain. Review of Systems Constitutional: Reports: no symptoms. Objective Last 24 Hrs of Vital Signs/I&O Vital Signs Date Time Temp Pulse Resp B/P B/P Pulse O2 O2 Flow FiO2 Mean Ox Delivery Rate 07/27 636 97.9 74 20 110/70 97 Room Air 07/26 2220 99.4 77 16 118/72 96 Room Air 07/26 1432 98.3 85 16 109/70 100 Room Air Intake & Output 07/27 0800 / 0000 07/26 1600 Intake Total 233 991 0488 Output Total Balance 724 969 1816 Intake, IV 200 200 Intake, Oral 480 900 Number 1 Bowel Movements Physical Exam General Appearance: Alert, Oriented X3, Cooperative, No Acute Distress Skin: No Rashes, No Breakdown Skin Temp/Moisture Exam: Warm/Dry Sepsis Skin Exam (color): Normal for Ethnicity HEENT: Atraumatic Cardiovascular: Normal S1, Normal S2, No Murmurs Lungs: Clear to Auscultation, Normal Air Movement Abdomen: Soft, No Tenderness Neurological: Normal Speech Extremities: No Edema Assessment/Plan Assessment: Mr. Montoya is a 51-year-old gentleman for no significant past medical history presents to the [place] ER with abdominal pain that has been going on for the past 2 weeks. Assessment: 1. Acute Diverticulitis with failed outpatient treatement Plan: * Doing well on regular diet. No fevers overnight. * Stable for discharge today. Will give him his IV Ceftriaxone dose before he leaves. * Will discharge on PO cipro and flagyl for another week course. * Zofran as needed for nausea * Diet: Regular * DVT Prophylaxis: SC Lovenox * Code: Full Code Problem List: 1. Acute diverticulitis Pain Ratin Pain Location: none Pain Goal: Remain pain free Pain Plan: none Tomorrow's Labs & Rationales: none
--- NOTE | 2017-07-27 07:21 | PN- Student ---
Subjective Subjective: No acute events overnight. Patient feel ready to go home. Patient is tolerating the diet and ambulating. Complains of "discomfort" in the abdomen, but had one of the greatest night in the last couple of days. Denied headache, nausea, vomiting, chest pain, SOB, diarrhea, constipation. Objective Objective: Vital Signs Date Time Temp Pulse Resp B/P B/P Pulse O2 O2 Flow FiO2 Mean Ox Delivery Rate 07/27 0637 97.9 74 20 110/70 97 Room Air 07/26 2220 99.4 77 16 118/72 96 Room Air 07/26 1432 98.3 85 16 109/70 100 Room Air Intake & Output 07/27 0800 06/08 0000 07/26 1600 Intake Total 050 353 2755 Output Total Balance 233 888 1404 Intake, IV 200 200 Intake, Oral 480 900 Number 1 Bowel Movements General= alert and oriented in no acute distress HEENT= normocephalic atraumatic, aniteric sclera, moist oral mucosa, no exudates CVS= regular rate and rythm, normal S1 and S2 Lungs= symetrical chest expasion, clear breath sounds, no added sound Abdomen= presented bowel sounds, soft, nondistended, mildly tender over the LLQ Neuro= intact CN II-XII, normal speech Extremities= palpable pulses x4, no edema Results Results: Laboratory Tests 07/26/17 0708: CBC w Diff NO MAN DIFF REQ, RBC 3.94 L, MCV 83.9, MCH 28.4, MCHC 33.8, RDW 13.3 , MPV 8.9, Gran % 74.6, Lymphocytes % 11.4 L, Monocytes % 11.9 H, Eosinophils % 1.7, Basophils % 0.4, Absolute Granulocytes 5.6, Absolute Lymphocytes 0.9 L, Absolute Monocytes 0.9 H, Absolute Eosinophils 0.1, Absolute Basophils 0 07/25/17 0650: Anion Gap 14, Estimated GFR > 60, BUN/Creatinine Ratio 16.3, CBC w Diff NO MAN DIFF REQ, RBC 3.91 L, MCV 84.3, MCH 28.4, MCHC 33.7, RDW 13.0, MPV 8.6, Gran % 70.9, Lymphocytes % 15.7 L, Monocytes % 11.0 H, Eosinophils % 1.8, Basophils % 0.6, Absolute Granulocytes 5.1, Absolute Lymphocytes 1.1 L, Absolute Monocytes 0.8 H, Absolute Eosinophils 0.1, Absolute Basophils 0 07/25/17 0136: Urine Color YEL, Urine Clarity CLEAR, Urine pH 6.5, Ur Specific [place] 1.020, Urine Protein NEG, Urine Ketones NEG, Urine Nitrite NEG, Urine Bilirubin NEG, Urine Urobilinogen 1.0, Ur Leukocyte Esterase NEG, Ur Microscopic SEDIMENT EXAMINED, Urine RBC 1-3, Urine WBC 1-3 H, Urine Hemoglobin TRACE-INTACT H, Urine Glucose NEG 07/24/17 1507: Lactic Acid Cancelled Microbiology 07/25 013 URINE ROUT: Urine Culture - COMP 07/24 1452 BLOOD: Blood Culture - RES 07/24 1439 BLOOD: Blood Culture - RES Assessment/Plan Assessment: 51 y/o M without significant medical history, came in due to failure of outpatient management of diverticulitis. Patient found to have leukocytosis of 14.6 (g-79%), calcium of 10.3, LFT WNL, Amylase 46, lipase 39. A CTabd was performed which showed worsening of the sigmoid colon diverticulitis compared to the prior study (07/06/17). No microperforations and no masses are demonstrated. Based on H&P, labs and imagine, patient may be having a progression of the diverticulitis or a new flare. At this point surgery is not needed as there is no perforation or abscess, and no guarding or rebound in the examination. Patient is tolerating low fiber diet, had a 100.4 temp yesterday that seems to be isolated. No spikes of fever in the last 24 hours. Leukocytosis is resolved. H&H stable. At this point seem like current treatment is improving the patient clinically and lab kemp. At this point patient is stable for discharge. Plan: Plan: LLQ pain 2/2 to worsening sigmoid diverticulitis which failed outpatient management: -patient admitted to [facility] -monitor vitals, CBC and chemistry -Patient on low fiber regular diet - pain cotrol (Dilaudid 2mg IV Q6 PRN and Tylenol 1g Q8 PRN) -PO flagyl and cipro to complete 10 days -Blood cx pending -Patient should follow with PCP and GI with a colonoscopy DVT ppx: SCD and Lovenox (40mg daily SC) Patient is full code
--- NOTE | 2017-07-27 07:26 | Discharge Summary ---
Visit Information Visit Dates Admission Date: 07/24/17 Discharge Date: 07/27/17 Hospital Course Course Attending Physician: Cecilia Mei MD Primary Care Physician: Patient Has No Primary Care Dr Hospital Course: Mr. Montoya is a 51-year-old gentleman with no significant past medical history who presented to the [place] ER with abdominal pain that has been going on for the past 2 weeks. He was seen and treated for: Acute Diverticulitis: Patient had been seen in the ER 2 weeks prior to admission. He was diagnosed with diverticulitis and was discharged home on Augmentin. Despite antibiotics his symptoms persisted along with fever, chills and loose bowel movements requiring him to return to the ED. Imaging on admission showed marked worsening of the sigmoid colon diverticulitis. He was admitted to general medicine floor and started on IV Ceftriaxone and Flagyl. He was made NPO to give his bowel a rest. As his symptoms improved, his diet was restarted with clear liquids and advanced as tolerated. Patient responded well to treatment. At the time of discharge, he was switched to PO antibiotics and recommeded to complete his course. He was recommended to follow up with a PCP after discharge, with offer of a referral with one of our PCP. The patient however, wishes to follow up with his family PCP who's name he was unable to recall. He was discharged in stable disposition. Allergies: Coded Allergies: ofloxacin (From OCUFLOX) (LIGHT SENSITIVITY 07/06/17) Significant Procedures: SERVICE DATE: 07/24/17-114 EXAM TYPE: CAT - CT ABD & PELVIS W IV CONTRAST FINDINGS: LUNG BASES: The visualized lung bases are unremarkable. LIVER, GALLBLADDER, AND BILIARY TREE: The liver is normal in size, shape, and attenuation. No focal hepatic lesion or biliary ductal dilatation is present. The gallbladder is unremarkable with no evidence of radiopaque gallstones, gallbladder wall thickening, or obvious pericholecystic inflammatory changes. PANCREAS: Unremarkable. SPLEEN: The spleen is top normal in size. There is a splenule at the splenic hilum. ADRENAL GLANDS: The adrenal glands are not enlarged. KIDNEYS AND URETERS: The kidneys are normal in size, shape, and attenuation. No hydronephrosis, hydroureter, or calculi seen. No perinephric stranding. BLADDER: The bladder is almost completely decompressed. GASTROINTESTINAL TRACT: The stomach and small bowel are unremarkable. The appendix is normal. There has been interval worsening of the diverticulitis in the distal descending and in the sigmoid colon. The bowel wall is thickened and there is increased density in the pericolonic fat. There are small foci of air, which may in diverticula. There are no definite microperforations or fluid collections/abscess. There is no evidence of bowel obstruction. There is no free intra-abdominal air. ABDOMINAL WALL: The study redemonstrates a small fat-containing left inguinal hernia. LYMPH NODES: There is no abdominal or pelvic lymphadenopathy. VASCULAR: The vascular structures are unremarkable. No aneurysms are demonstrated. PELVIC VISCERA: The prostate gland is nonenlarged. There is no free fluid in the pelvis. OSSEOUS STRUCTURES: There are mild multilevel spondylitic changes. IMPRESSION: 1. The current study demonstrates marked worsening of the sigmoid colon diverticulitis compared to the prior study. There are no definite microperforations and no masses are demonstrated. Disposition Summary Disposition Principal Diagnosis: Acute Diverticulitis Additional Diagnosis: none Discharge Disposition: home or self care Discharge Instructions General Discharge Information Code Status: Full Code Patient's Diet: Regular - low fiber diet Patient's Activity: As tolerated Follow-Up Instructions/Appts: Please follow up with a PCP within one week of discharge. Medications at Discharge Discharge Medications: Stop taking the following medications: Amoxicillin/Potassium Clav (Augmentin 875-125 Tablet) 875 MG-125 MG TABLET ORAL TWICE DAILY Qty = 28 Start taking the following new medications: Ciprofloxacin HCl (Ciprofloxacin HCl) 500 MG TABLET 1 Tablet ORAL TWICE DAILY Qty = 14 No Refills Comments: NOT GIVEN IN HOSPITAL Metronidazole (Metronidazole) 500 MG TABLET 1 Tablet ORAL EVERY 8 HOURS Qty = 21 No Refills Comments: IV FLAGYL GIVEN AT 6 AM ON 07/27/17 Copies To: none
[2017-07-27] MEDS ORDERED: CIPROFLOXACIN500 M2 PO (09:47)
[2017-07-27] MEDS ORDERED: METRONIDAZOLE500 M1 PO (09:47)
== END 2017-07-27 11:32 | DRG 392 ==
LOC: ERH 09:11 → 2NB 14:23 → ERHI 14:23 → ENRESERV 14:39 → ENTRNSPT 16:42 → EDTRNSPTSTS 16:58 → EDTRNSPT 16:58 → CMPTRNSPT 17:07 → 2NB 17:12 → ENPENDDIS 07-27 09:55 → 2NB 07-27 11:32
PROVIDERS: Internal Medicine; Internal Medicine Adolescent Medicine; Physician Assistant
DX: K57.32 Diverticulitis of large intestine without perforation or abscess without bleeding (principal); Z88.1 Allergy status to other antibiotic agents
CPT/HCPCS: 2NBSP; 36592; 74177; 81001; 82436; 87040; 87086; J0131; J0696; J1650; J1885; J2405